=== PATIENT | male | born 1985 | race Caucasian/White ===

== ENCOUNTER 2023-08-21 11:08 | Emergency (ER) | payer SELFPAY | END 2023-08-21 12:20 | disposition home or self-care (01) | LOC: MW.ED 11:08 | DX: Z76.0 Encounter for issue of repeat prescription (principal); E03.9 Hypothyroidism, unspecified; F17.210 Nicotine dependence, cigarettes, uncomplicated; Z79.899 Other long term (current) drug therapy | CPT/HCPCS: 99281; 99283 ==